=== PATIENT | female | born 1990 | race Caucasian/White ===

== ENCOUNTER 2023-10-30 22:44 | Emergency (ER) | payer MEDICAID, SELFPAY ==
[2023-10-30 22:49] VITALS: BP 106/73; PULSE 78; RESP 18; TEMP 36.3; O2SAT 99; BMI 21.9
--- NOTE | 2023-10-31 00:06 | ED_ITS ---
HPI - Abdominal Pain General Time Seen by Provider: 00:06 Date Seen: 10/31/23 Chief Complaint: Abdominal Pain Stated Complaint: abdominal pain Time Seen by Provider: 10/31/23 00:05 Source: patient, RN notes reviewed and old records reviewed Mode of arrival: ambulatory Limitations: no limitations History of Present Illness HPI narrative: 33-year-old female who comes in today with lower abdominal pain. .Patient presents today with cramping abdominal pain that she says started around 10:30 p.m. denies nausea vomiting, denies urinary symptoms. Feels like she might be constipated, unsure when her last bowel movement was. Last period was 3 months ago, as patient is on control in skips the placebo. Has not taken anything for pain. No prior abdominal surgeries Related Data Previous Rx's Medication Instructions Recorded dicyclomine 20 mg tablet 20 mg PO QID PRN abdominal pain 10/31/23 #10 tabs docusate sodium 100 mg capsule 100 mg PO BID #10 caps 10/31/23 (Colace) polyethylene glycol 3350 17 17 g PO DAILY #238 grams 10/31/23 gram/dose oral powder (Miralax) Allergies Allergy/AdvReac Type Severity Reaction Status Date / Time No Known Drug Allergies Allergy Verified 10/30/23 22:52 Review of Systems Status of ROS Reports: 10 or more systems reviewed and unremarkable except as noted in History and below Exam Narrative: Exam Narrative: General: Well-developed and well-nourished, no acute distress Head: Atraumatic and normocephalic Eyes: Pupils are equal reactive, extraocular motions intact, conjunctiva clear ENT: External nose and ears are normal, posterior pharynx without erythema or exudate Neck: No midline cervical tenderness, full spontaneous range of motion the neck, trachea midline, no adenopathy Heart: Regular rate and rhythm no murmurs or thrills Lungs: Clear to auscultation bilaterally without wheezes or crackles Abdomen: Soft, mild suprapubic tenderness, nondistended with active bowel sounds Musculoskeletal: No tenderness, deformity, or edema Neurologic: Awake, alert, and oriented x3, no gross focal neurologic deficits, cranial nerves intact as tested Psych: Mood and affect are appropriate Skin: No rashes Const: Vital Signs, click to edit/add: Vital Signs - 24 hr 10/30/23 22:49 Temperature 97.4 F L Pulse Rate [Right Pulse Oximeter] 78 Respiratory Rate 18 Blood Pressure [Ri ght Upper Arm] 106/73 Pulse Oximetry 99 Oxygen Delivery Me thod Room Air Course Course ED Course: Patient seen examined, prior records reviewed. Patient presents today with lower abdominal pain that she describes as cramping, started just prior to coming the emergency department. Has not taken anything for this. On examination, vital is stable, resting quietly when I arrived in the room. She has mild suprapubic tenderness. Symptoms could be related to constipation, consider uterine or ovarian pathology as well as specially given the fact that patient has not had a menstrual cycle for 3 months due to being on control pill. Labs ordered, CT scan will be performed, Toradol for pain Reevaluation(s) Time of Reevaluation #1: 01:01 Reevaluation #1: Labs ordered and independently interpreted be me with normal CBC, mild hypokalemia which will be replaced orally. Time of Reevaluation #2: 02:43 Reevaluation #2: CT scan independently interpreted by me with moderate volume stool in the descending colon and sigmoid, question of a right ovarian cyst as well. Patient remains comfortable in the department, has not yet provided a urine sample. Time of Reevaluation #3: 03:06 Reevaluation #3: Updated patient with diagnosis and plan, patient will be given magnesium citrate and enema in the emergency department with anticipated discharge Vital Signs Vital signs: Initial Vital Signs Temperature 97.4 F L 10/30/23 22:49 Temperature Source Temporal Artery Scan 10/30/23 22:49 Pulse Rate 78 10/30/23 22:49 Pulse Rhythm Regular 10/30/23 22:49 Respiratory Rate 18 10/30/23 22:49 Blood Pressure 106/73 10/30/23 22:49 Blood Pressure Mean 84 10/30/23 22:49 Blood Pressure Position Sitting 10/30/23 22:49 Pulse Oximetry 99 10/30/23 22:49 Oxygen Delivery Method Room Air 10/30/23 22:49 Vital Signs Temperature 97.4 F L 10/30/23 22:49 Pulse Rate 78 10/30/23 22:49 Respiratory Rate 18 10/30/23 22:49 Blood Pressure 106/73 10/30/23 22:49 Pulse Oximetry 99 10/30/23 22:49 Oxygen Delivery Method Room Air 10/30/23 22:49 Temperature 97.4 F L 10/30/23 22:49 Pulse Rate 78 10/30/23 22:49 Respiratory Rate 18 10/30/23 22:49 Blood Pressure 106/73 10/30/23 22:49 Pulse Oximetry 99 10/30/23 22:49 Oxygen Delivery Method Room Air 10/30/23 22:49 Medications Administered Medications: Generic Name Dose Route Start Last Admin Trade Name Freq PRN Reason Stop Dose Admin Docusate Sodium/Benzocaine 5 ml 10/31/23 03:04 10/31/23 03:07 Docusate Sodium/Benzocaine 5 Ml Enema OR 10/31/23 03:05 5 ml ONCE ONE Administration Sodium Chloride 1,000 mls @ 1,000 mls/hr 10/31/23 01:15 10/31/23 02:53 0.9 % Sodium Chloride 1000 Ml IV 10/31/23 02:14 Infused .Q1H KAMI Infusion Ketorolac Tromethamine 15 mg 10/31/23 00:16 10/31/23 00:42 Ketorolac 15 Mg/Ml Inj IVP 10/31/23 00:17 15 mg ONCE ONE Administration Magnesium Citrate 300 ml 10/31/23 03:04 10/31/23 03:07 Magnesium Citrate 300 Ml Solution PO 10/31/23 03:05 300 ml ONCE ONE Administration Potassium Bicarbonate 25 meq 10/31/23 01:02 10/31/23 02:54 Potassium Bicarb 25 Meq Effervescent Tab PO 10/31/23 01:03 25 meq ONCE ONE Administration MDM - Abdominal Pain Lab Data Labs: Lab Results 10/31/23 10/31/23 10/31/23 Range/Units 00:36 01:51 02:50 WBC 7.98 (4.50-11.00) K/uL RBC 4.05 (4.00-5.20) m/uL Hgb 12.7 (12.0-16.0) gm/dL Hct 37.6 (33.0-51.0) % MCV 93 (80-100) fL MCH 31 (26-34) pg MCHC 34 (32-36) gm/dL RDW Coeff of Shanelle 11.8 (11.5-15.5) % Plt Count 338 (140-440) K/uL Neut % (Auto) 64.2 (42.0-72.0) % Lymph % (Auto) 26.2 (20-44) % [place] % (Auto) 8.0 (0.0-11.0) % Eos % (Auto) 0.9 (0.0-7.0) % Baso % (Auto) 0.4 (0.0-3.0) % Neut # (Auto) 5.13 (1.7-7.0) K/uL Lymph # (Auto) 2.09 (0.90-2.90) K/uL [place] # (Auto) 0.60 (0.00-0.90) K/UL Eos # (Auto) 0.07 (0.00-0.50) K/uL Baso # (Auto) 0.03 (0.00-0.30) K/uL Abs Immat Gran (auto) 0.02 (0.00-0.30) K/uL Imm/Tot Granulo (auto) 0.3 % Sodium 135 (135-149) mmol/L Potassium 3.1 L (3.6-5.1) mmol/L Chloride 103 (96-114) mmol/L Carbon Dioxide 28 (20-32) mmol/L Anion Gap 4 L (7-15) mEq/L BUN 14 (5-24) mg/dL Creatinine 0.7 (0.5-1.5) mg/dL Estimated Creat Clear 111.16 Estimated GFR 117 ml/min Glucose 140 H (60-115) mg/dL Calcium 8.8 (8.4-10.6) mg/dL Magnesium 2.0 (1.5-2.6) mg/dL HCG, Qual Negative (Negative) Urine Color Yellow (Yellow) Urine Appearance Slightly Cloudy A (Clear) Urine pH 6.5 (5.0-8.5) Ur Specific [place] 1.010 (1.000-1.030) Urine Protein Negative (Negative) Urine Glucose (UA) Negative (Negative) Urine Ketones Negative (Negative) Urine Blood Negative (Negative) Urine Nitrite Negative (Negative) Urine Bilirubin Negative (Negative) Urine Urobilinogen 0.2 (0.2-1.0) Ur Leukocyte Esterase 1+ A (Negative) Urine RBC 0-2 (0-2) Urine WBC 0-2 (0-5) Ur Squamous Epith Cells Few (None-Few) Urine Bacteria Few A (None) Lab Acknowledgement Test Added Discharge Plan Discharge Clinical Impression: Abdominal cramping, Hypokalemia, Constipation Patient Disposition: Home, Self-Care Condition: Stable Instructions: Acute Abdominal Pain (DC) Additional Instructions: Liquid diet for 24 hours Take MiraLax and magnesium citrate as prescribed Take Bentyl for abdominal pain and cramping Activity Level: Activity as Tolerated Prescriptions: New polyethylene glycol 3350 [Miralax] 17 gram/dose powder 17 g PO DAILY Qty: 238 0RF docusate sodium [Colace] 100 mg capsule 100 mg PO BID Qty: 10 0RF dicyclomine 20 mg tablet 20 mg PO QID PRN (Reason: abdominal pain) Qty: 10 0RF Follow Up/Referrals: Provider,Not a Local [Primary Care Provider] - Stand Alone Forms: MyHealth Info Instructions
--- NOTE | 2023-10-31 00:16 | CT_ITS ---
Patient: ANTON GREGORY Facility:?[facility] Patient ID:?[id number] Site Patient ID:?[id number]. Site :?[id number] Study:?CT-Abdomen/Pelvis W/ISOVUE 370 69CC-10/31/2023 2:39:14 AM Ordering Physician:TERRANCE Final Report: INDICATION: Abdominal pain. TECHNIQUE: Multiplanar CT examination of the abdomen and pelvis was performed after the administration of 69 mL Isovue 370 intravenous contrast. COMPARISON: None. FINDINGS: Lower chest: No focal consolidation. Normal heart size. No pleural effusions or pneumothorax. Liver: Unremarkable. Gallbladder: Unremarkable. Biliary: Unremarkable. Pancreas: Within normal limits. Spleen: Unremarkable. Adrenal glands: Unremarkable. Renal/ureters/bladder: Normal in size and symmetrically enhancing. No obstructive uropathy. No hydronephrosis or obstructive urinary calculi. No suspicious renal masses. The ureters appear unremarkable. The bladder is within normal limits. Pelvis: The uterus is unremarkable. No adnexal masses. Gastrointestinal: No bowel wall thickening or bowel obstruction. Normal appendix. No significant colonic diverticulosis. Severe colonic stool burden. Vasculature: No aortic aneurysm. The portal vein remains patent. No significant atherosclerotic calcifications. Lymph nodes: No pathologic lymphadenopathy by size criteria. Peritoneum: No free fluid or pneumoperitoneum. No drainable fluid collections. Abdominal wall/soft tissues: Unremarkable. Bones: No acute osseous abnormalities. IMPRESSION: 1. No acute abdominopelvic pathology. The etiology of the patient`s abdominal pain is not elucidated on this examination. 2. Severe colonic stool burden, correlate for constipation. Please note that all CT scans at this facility use dose modulation, iterative reconstruction, and/or weight-based dosing when appropriate to reduce radiation dose to as low as reasonably achievable. Dictated by Tawanda Valentin MD @ 10/31/2023 3:00:02 AM Signed by:?Tawanda Valentin MD @10/31/2023 3:00:02 AM (Electronic Signature)
[2023-10-31] MEDS: KETOROLAC 15 MG/ML inj IVP (00:42)
[2023-10-31 00:45] LABS: Basophils Absolute Auto 0.03 K/uL (0.00-0.30); Basophils Percent Auto 0.4 % (0.0-3.0); Eosinophils Absolute Auto 0.07 K/uL (0.00-0.50); Eosinophils Percent Auto 0.9 % (0.0-7.0); Hematocrit 37.6 % (33.0-51.0); Hemoglobin* 12.7 gm/dL (12.0-16.0); Immature Granulocytes Abs Auto 0.02 K/uL (0.00-0.30); Immature Granulocytes Pct Auto 0.3 %; Lymphocytes Absolute Auto 2.09 K/uL (0.90-2.90); Lymphocytes Percent Auto 26.2 % (20-44); Mean Corpuscular HGB Conc 34 gm/dL (32-36); Mean Corpuscular Hemoglobin 31 pg (26-34); Mean Corpuscular Volume 93 fL (80-100); Neutrophils Absolute Auto 5.13 K/uL (1.7-7.0); Neutrophils Percent Auto 64.2 % (42.0-72.0); Platelet Count* 338 K/uL (140-440); RDW Coefficient of Variation % 11.8 % (11.5-15.5); Red Blood Count 4.05 m/uL (4.00-5.20); White Blood Count* 7.98 K/uL (4.50-11.00)
[2023-10-31 00:48] LABS: Slide Review Reflex No
[2023-10-31 00:58] LABS: Chloride* 103 mmol/L (96-114); Potassium* 3.1 mmol/L (3.6-5.1); Sodium* 135 mmol/L (135-149)
[2023-10-31 01:01] LABS: Anion Gap 4 mEq/L (7-15); Carbon Dioxide* 28 mmol/L (20-32); Creatinine* 0.7 mg/dL (0.5-1.5); Est. Creatinine Clearance* 111.16; Estimated Glomerular Filt Rate 117 ml/min
[2023-10-31 01:02] LABS: Blood Urea Nitrogen* 14 mg/dL (5-24); Calcium* 8.8 mg/dL (8.4-10.6); Glucose* 140 mg/dL (60-115)
[2023-10-31] MEDS: 0.9 % SODIUM CHLORIDE 1000 ml 1,000 ML IV (01:18)
[2023-10-31 01:58] LABS: HCG Qualitative Serum* Negative (Negative)
[2023-10-31] MEDS: POTASSIUM BICARB 25 MEQ EFFERVESCENT TAB PO (02:54)
[2023-10-31 03:03] LABS: Appearance Urine Slightly Cloudy (Clear); Bilirubin Urine Negative (Negative); Blood Urine Negative (Negative); Color Urine Yellow (Yellow); Glucose Urine Negative (Negative); Ketones Urine Negative (Negative); Leukocyte Esterase Urine 1+ (Negative); Nitrite Urine Negative (Negative); Protein Urine Negative (Negative); Urobilinogen Urine 0.2 (0.2-1.0); pH Urine 6.5 (5.0-8.5)
[2023-10-31] MEDS: MAGNESIUM CITRATE 300 ML SOLUTION PO (03:07)
[2023-10-31] MEDS: DOCUSATE SODIUM/BENZOCAINE 5 ML ENEMA PR (03:07)
[2023-10-31 03:09] LABS: Bacteria Urine Few; RBC Urine 0-2 (0-2); Squamous Epithelial Cell Urine Few (None-Few); WBC Urine 0-2 (0-5)
== END 2023-10-31 04:13 | disposition home or self-care (01) ==
PROVIDERS: Emergency Provider Family Medicine
DX: E87.6 Hypokalemia (principal); K59.00 Constipation, unspecified
CPT/HCPCS: 36415; 74177; 80048; 81001; 81025; 83735; 84703; 85025; 87086; 96374; 99284; A9270; J1885; J7030; Q9967

== ENCOUNTER 2024-01-13 22:39 | Emergency (ER) | payer MEDICAID, SELFPAY ==
[2024-01-13 22:46] VITALS: BP 126/84; PULSE 89; RESP 20; TEMP 36.7; O2SAT 99; BMI 21.6
[2024-01-13 22:52] LABS: Appearance Urine Slightly Cloudy (Clear); Bilirubin Urine Negative (Negative); Blood Urine Negative (Negative); Color Urine Yellow (Yellow); Glucose Urine Negative (Negative); Ketones Urine Negative (Negative); Leukocyte Esterase Urine 1+ (Negative); Nitrite Urine Negative (Negative); Protein Urine Negative (Negative); Specific Gravity Urine 1.015 (1.000-1.030); Urobilinogen Urine 0.2 (0.2-1.0)
--- NOTE | 2024-01-13 23:03 | ED.GENADULT ---
HPI - General Adult General Chief complaint: Flank Pain Stated complaint: poss kidney infection Time Seen by Provider: 01/13/24 22:45 Source: patient Mode of arrival: ambulatory Limitations: no limitations History of Present Illness HPI narrative: 33-year-old female coming in today complaining of flank pain that some present for approximately 3 days. She denies any vomiting or fevers. She states that she is nauseated on and off. Patient states that she has had dysuria for approximately 3 weeks. She was seen in the urgent care on 01/07/2024 and diagnosed with a UTI and BV. She was started on Macrobid however, she never picked up the Macrobid. She was also started on metronidazole which she has been taking. She denies any blood in her urine, dysuria is not getting worse. Patient states that she has a history of UTIs and kidney infections. She was seen in October for abdominal pain. At that time she was diagnosed with constipation. Abdominal CT scan was done and was unremarkable aside from significant stool burden. She states that since then she has been taking MiraLax and Mag citrate. She states that she has daily bowel movements and feels like that issue has been resolved. Related Data Home Medications ?Medication ?Instructions ?Recorded ?Confirmed bupropion HCl 150 mg 24 hr tablet, 150 mg PO DAILY 01/13/24 01/13/24 extended release drospirenone 3 mg-ethinyl 1 tab PO DAILY 01/13/24 01/13/24 estradiol 0.02 mg tablet (Lo-Zumandimine (28)) duloxetine 20 mg capsule,delayed 20 mg PO DAILY 01/13/24 01/13/24 release fluconazole 150 mg tablet 150 mg PO Q3D 01/13/24 01/13/24 methylphenidate HCl 18 mg 18 mg PO QAM 01/13/24 01/13/24 tablet,extended release 24 hr metronidazole 500 mg tablet 500 mg PO BID 01/13/24 01/13/24 Previous Rx's ?Medication ?Instructions ?Recorded fluconazole 150 mg tablet 150 mg PO DAILY #1 tab 01/13/24 nitrofurantoin 100 mg PO Q12H 2 days #4 caps 01/13/24 monohydrate/macrocrystals 100 mg capsule (Macrobid) Allergies Allergy/AdvReac Type Severity Reaction Status Date / Time No Known Drug Allergies Allergy Verified 01/13/24 22:50 Review of Systems Status of ROS: Reports: 10 or more systems reviewed and unremarkable except as noted in History and below [facility] Social History Smoking Status: Never smoker Second hand tobacco smoke exposure: No How often do you have a drink containing alcohol: never AUDIT-C Alcohol total score: 0 Non-prescribed substance use: denies use Exam Narrative: Exam Narrative: Well-nourished well-developed patient in no acute distress. Alert and oriented. Answers questions appropriately. Mood and affect are appropriate. Thoughts are goal oriented and rational. No tangential or magical thinking noted. Patient speaks in full sentences without needing to catch her breath. Vital signs are normal. Patient does not appear ill or toxic. HEENT: Normocephalic atraumatic. Pupils are equally round reactive to light. Extraocular muscles are intact. Conjunctivae are moist without any icterus noted. Moist mucous membranes. Cardiovascular: Heart is regular rate and rhythm S1 and S2 are present without any murmurs. Lungs: Clear to auscultation bilaterally no wheezes rhonchi or rales are appreciated. Patient takes deep breaths without any discomfort. Abdomen: Soft and nontender nondistended with normal bowel sounds. No guarding or rebound. No masses or organomegaly appreciated. No CVA tenderness. Extremities: Bilateral lower extremities are without edema. Normal DP and PT pulses. Skin: Well perfused without any obvious rashes. Multiple tattoos. Multiple piercings. Const: Vital Signs, click to edit/add: Vital Signs - 24 hr 01/13/24 22:46 Temperature 98.0 F Pulse Rate [Right Pulse Oximeter] 89 Respiratory Rate 20 Blood Pressure [Ri ght Upper Arm] 126/84 Pulse Oximetry 99 Oxygen Delivery Me thod Room Air Course Vital Signs Vital signs: Initial Vital Signs Temperature 98.0 F 01/13/24 22:46 Temperature Source Temporal Artery Scan 01/13/24 22:46 Pulse Rate 89 01/13/24 22:46 Respiratory Rate 20 01/13/24 22:46 Blood Pressure 126/84 01/13/24 22:46 Blood Pressure Mean 98 01/13/24 22:46 Blood Pressure Position Sitting 01/13/24 22:46 Pulse Oximetry 99 01/13/24 22:46 Oxygen Delivery Method Room Air 01/13/24 22:46 Vital Signs Temperature 98.0 F 01/13/24 22:46 Pulse Rate 89 01/13/24 22:46 Respiratory Rate 20 01/13/24 22:46 Blood Pressure 126/84 01/13/24 22:46 Pulse Oximetry 99 01/13/24 22:46 Oxygen Delivery Method Room Air 01/13/24 22:46 Temperature 98.0 F 01/13/24 22:46 Pulse Rate 89 01/13/24 22:46 Respiratory Rate 20 01/13/24 22:46 Blood Pressure 126/84 01/13/24 22:46 Pulse Oximetry 99 01/13/24 22:46 Oxygen Delivery Method Room Air 01/13/24 22:46 Medical Decision Making MDM Narrative Medical decision making narrative: 33-year-old female with dysuria and flank pain going on for several weeks. Will have the patient start her Macrobid, extended to 7 days. Of note, Her UA in the urgent care was, per the note, suggestive of UTI however the culture did not grow out anything. She is concerned about the possibility of yeast infection with antibiotic use stool give her a dose of Diflucan to take as needed as well treated we discussed symptomatic treatment. We discussed reasons for follow-up. Given that the patient does not have any systemic symptoms and exam was benign, did not feel that lab work was necessary today. Given that the patient had an abdominal CT scan 2 months ago, did not feel that repeat imaging would be beneficial. UA was obtained during triage urge, results pending. Follow-up with primary care provider if symptoms are not getting better, we discussed other potential causes of flank pain. Discharge Plan Discharge Clinical Impression: Acute flank pain Patient Disposition: Home, Self-Care Condition: Stable Additional Instructions: Start Macrobid. You have a 5 day prescription, we will extend this to 7 days, an additional 2 days will be sent to your pharmacy. Okay to use ibuprofen as needed for discomfort: 600-800 mg 3 times a day as needed, always take on a full stomach. Follow-up with your primary care provider in approximately 1 week if you are not feeling better. Return to the ER if you develop a fever or vomiting. Prescriptions: New fluconazole 150 mg tablet 150 mg PO DAILY Qty: 1 0RF nitrofurantoin monohyd/m-cryst [Macrobid] 100 mg capsule 100 mg PO Q12H 2 Days Qty: 4 0RF Rx Instructions: must administer with a meal/food No Action bupropion HCl 150 mg tablet extended release 24 hr 150 mg PO DAILY drospirenone-ethinyl estradiol [Lo-Zumandimine (28)] 3-0.02 mg tablet 1 tab PO DAILY fluconazole 150 mg tablet 150 mg PO Q3D metronidazole 500 mg tablet 500 mg PO BID methylphenidate HCl 18 mg tablet extended release 24hr 18 mg PO QAM duloxetine 20 mg capsule,delayed release(DR/EC) 20 mg PO DAILY Follow Up/Referrals: Provider,Not a Local [Primary Care Provider] - Stand Alone Forms: [facility] Info Instructions
[2024-01-13 23:06] LABS: Bacteria Urine Few; RBC Urine 0-2 (0-2); Squamous Epithelial Cell Urine Few (None-Few)
[2024-01-13 23:07] VITALS: BP 121/74; PULSE 85; RESP 20; TEMP 36.7; O2SAT 99
[2024-01-13 23:30] VITALS: BP 121/74; PULSE 85; RESP 20; TEMP 36.7
== END 2024-01-13 23:30 | disposition home or self-care (01) ==
PROVIDERS: Emergency Provider Family Medicine
DX: R10.9 Unspecified abdominal pain (principal)
CPT/HCPCS: 81001; 87086; 99283; 99284